=== PATIENT | female | born 1960 | race Caucasian/White ===

== ENCOUNTER → 2017-04-03 | Outpatient (CLI) | payer OTHER ==
[~2017-04-03] MED LIST: ATIVAN0.5 MG PO; COZAAR50 MG PO; DESYREL100 MG PO; GLUCOPHAGE500 MG PO
== END | disposition home or self-care (01) ==
LOC: CDC 13:29
DX: Z01.810 Encounter for preprocedural cardiovascular examination (principal); M25.522 Pain in left elbow; R94.31 Abnormal electrocardiogram [ECG] [EKG]
CPT/HCPCS: 93000